=== PATIENT | male | born 1985 | race Hispanic/Latino ===

== ENCOUNTER 2024-09-18 16:45 | Emergency (ER) | payer SELFPAY ==
[2024-09-18] MEDS ORDERED: NA CHLORIDE 0.9% 1,000 ML ONE (19:04)
[2024-09-18 20:35] LABS: Absolute Basophils 0.1 K/uL (0-0.5); Absolute Eosinophils 0.3 K/uL (0-0.5); Absolute Lymphocytes (CBC) 3.2 K/uL (0.7-4.9); Absolute Monocytes 1.4 K/uL (0.1-1.3); Absolute Neutrophil 6.3 K/uL (1.8-8.0); Basophils % 0.8 % (0-1.3); Eosinophils % 2.9 % (0-4.4); Hematocrit 48.7 % (39.6-49.0); Hemoglobin 16.9 g/dL (13.6-17.9); Lymphocytes % 28.2 % (15.3-44.8); MCH 29.3 pg (27.0-35.0); MCHC 34.7 g/dL (32.0-36.0); MCV 84.4 fL (80-100); MPV 7.3 fL (7.6-11.3); Monocytes % 12.1 % (3.3-12.3); Nucleated Red Blood Cells % 0.1 % (0-0); Platelets 381 thou/uL (152-406); RBC Red Blood Cell Count 5.77 M/uL (4.33-5.43); Red Cell Distribution Width 13.5 % (12.1-15.2)
[2024-09-18 20:49] LABS: Albumin 3.6 g/dL (3.4-5.0); Albumin/Globulin Ratio 0.8 (1.1-1.8); Anion Gap 11.2 mEq/L (5.0-15.0); Bilirubin Total 0.8 mg/dL (0.2-1.0); Globulin 4.7 g/dL (2.3-3.5); Potassium 3.2 mEq/L (3.5-5.1); Protein, Total 8.3 g/dL (6.4-8.2)
--- NOTE | 2024-09-18 21:34 | RAD REPORT ---
EXAMINATION: Abdomen Pelvis W Contrast CLINICAL INDICATION: Male, 39 years old.ABD PAIN TECHNIQUE: CT abdomen and pelvis was performed, after the administration of IV contrast, [facility]. Axial, sagittal and coronal reconstructions were obtained. One or more of the following dose reduction techniques were used: Automated exposure control, adjustment of the mA and/o r kV according to patient size, and/or iterative reconstruction. Unless otherwise specified, incidental findings do not require dedicated imaging follow-up. [id number]. COMPARISON: No prior exam. FINDINGS: LOWER CHEST: No acute process identified.No significant pericardial effusion. UPPER GI: No significant abnormality. LIVER: Hepatomegaly with steatosis GALLBLADDER/BILE DUCTS: No biliary ductal dilatation.? PANCREAS: No mass, ductal dilation, or amadna-pancreatic fluid. SPLEEN: Unremarkable. ADRENALS: No adrenal masses. KIDNEYS AND URETERS: No hydronephrosis.No suspicious renal mass.Nonobstructing renal calculi.No urete ral calculi. ABDOMINAL AORTA AND OTHER VESSELS: Normal caliber aorta and IVC. PERITONEUM: No abnormal free fluid. No free air. LYMPH NODES: Enlarged ileocolic mesenteric lymph nodes which are likely reactive. ABDOMINAL WALL: Unremarkable SMALL BOWEL/COLON: Mild diffuse colonic wall thickening.Normal appendix. Mild diverticulosis without diverticulitis. URINARY BLADDER: Underdistended but grossly unremarkable. REPRODUCTIVE ORGANS: No pathologic process. MUSCULOSKELETAL: No acute or suspicious osseous abnormality. ADDITIONAL FINDINGS: None. IMPRESSION: Mild diffuse colonic wall thickening suspicious for colitis. Normal appendix. Hepatomegaly with steatosis.
--- NOTE | 2024-09-18 21:53 | EDPHYS ---
Physician Documentation [facility] Name: Gabo Jeronimo Age: 39 yrs Sex: Male : 1985 Arrival Date: 09/18/2024 Time: 16:45 Bed 15 Private MD: ED Physician Heber Colvin HPI: 09/18 17:49 This 39 yrs old Male presents to ER via Ambulatory with complaints of sb4 Abdominal Pain, Diarrhea. 17:49 The patient presents with abdominal pain in the upper abdomen. Onset: The sb4 symptoms/episode began/occurred 1 week(s) ago. The symptoms do not radiate. Associated signs and symptoms: Pertinent positives: diarrhea, fever. The symptoms are described as sharp. Modifying factors: The symptoms are alleviated by nothing, the symptoms are aggravated by food. The patient has not experienced similar symptoms in the past. The patient has not recently seen a physician. Historical: - Allergies: 17:48 No Known Allergies; me1 - PMHx: 17:48 sepsis; me1 - PSHx: 17:48 None; me1 - Immunization history:: Adult Immunizations up to date. - Infectious Disease History:: Denies. - Social history:: Smoking status: Reported history of juuling and/or vaping. ROS: 17:49 Cardiovascular: Negative for chest pain, palpitations, and edema, sb4 17:49 Constitutional: Positive for fever, 17:49 Abdomen/GI: Positive for abdominal pain, diarrhea, abdominal cramps, 17:49 All other systems are negative, Exam: 17:49 Head/Face: Normocephalic, atraumatic. Eyes: Extra-ocular motions intact. Periorbital sb4 areas with no swelling, redness, or edema. ENT: Mucous membranes moist. Cardiovascular: Regular rate and rhythm with a normal S1 and S2. Respiratory: No increased work of breathing, no retractions or nasal flaring. Abdomen/GI: Soft, non-tender, no distension. Skin: Warm, dry with normal turgor. Normal color with no rashes, no lesions, and no evidence of cellulitis. 17:49 Constitutional: The patient appears in no acute distress, alert, awake, obese, Vital Signs: 17:42 BP 133 / 90; Pulse 104; Resp 18; Temp 98.3; Pulse Ox 100% ; Weight 149.69 kg; Height 5 me1 ft. 8 in. ; Pain 7/10; 20:30 BP 110 / 74; Pulse 80; Resp 17; Pain 0/10; rg5 21:30 BP 113 / 77; Pulse 81; Resp 18; Pain 0/10; rg5 17:42 Body Mass Index 50.18 (149.69 kg, 172.72 cm) me1 17:42 Pain Scale: Adult me1 20:30 Pain Scale: Adult rg5 21:30 Pain Scale: Adult rg5 MDM: 17:06 Medical Screening Exam initiated sb4 17:50 Differential diagnosis: colitis, gastroenteritis, crohns. sb4 21:52 Data reviewed: vital signs, nurses notes, lab test result(s), radiologic studies, and sb4 as a result, I will discharge patient. Counseling: I had a detailed discussion with the patient and/or guardian regarding the historical points, exam findings, and any diagnostic results supporting the discharge/admit diagnosis, lab results, radiology results, the need for outpatient follow up, for definitive care, to return to the emergency department if symptoms worsen or persist or if there are any questions or concerns that arise at home. 09/18 17:48 Order name: CBC with Diff; Complete Time: 20:40 sb4 09/18 17:48 Order name: CMP; Complete Time: 20:54 sb4 09/18 17:48 Order name: Lipase; Complete Time: 20:54 sb4 09/18 17:48 Order name: Fecal Leukocyte Stain sb4 09/18 17:48 Order name: Ova And Parasites sb4 09/18 17:48 Order name: Rotavirus Antigen sb4 09/18 17:48 Order name: Stool Culture sb4 09/18 17:48 Order name: CT Abd/Pelvis - IV Contrast Only; Complete Time: 21:42 sb4 09/18 17:48 Order name: IV Saline Lock; Complete Time: 20:38 sb4 09/18 17:48 Order name: Labs collected and sent; Complete Time: 20:39 sb4 Administered Medications: 20:00 Drug: NS 0.9% IV 1000 ml IV at 1 bolus Per protocol; to be given as a bolus over 60 rg5 minutes Route: IV; Rate: 1 bolus; Site: right forearm; 21:10 Follow up: IV Status: Completed infusion; IV Intake: 1000ml rg5 21:50 Drug: Potassium PO Effervescent Tablet 50 mEq PO once; dissolve in 4 ounces of water or rg5 juice Route: PO; 22:12 Follow up: Response: No adverse reaction rg5 21:50 Drug: metroNIDAZOLE PO 500 mg PO once Route: PO; rg5 22:12 Follow up: Response: No adverse reaction rg5 21:51 Not Given (Physician Discretion): ns 0.9% 1000 ml IV at 1 bolus Per protocol; to be sb4 given as a bolus over 60 minutes 21:52 Drug: Ciprofloxacin PO 500 mg PO once Route: PO; rg5 22:12 Follow up: Response: No adverse reaction rg5 Disposition Summary: 09/18/24 21:52 Discharge Ordered Notes: Location: Home sb4 Problem: new sb4 Symptoms: have improved sb4 Condition: Stable sb4 Diagnosis - Left sided colitis sb4 Followup: sb4 - With: Private Physician - When: 1 week - Reason: Recheck today's complaints, Re-evaluation by your physician Discharge Instructions: - Discharge Summary Sheet sb4 - Colitis sb4 Forms: - Antibiotic Education sb4 - Patient Portal Instructions sb4 - Leadership Thank You Letter sb4 Prescriptions: - Flagyl 500 mg Oral Tablet - take 1 tablet ORAL route every 12 hours for 7 days; 14 tablet; Refills: 0, sb4 Product Selection Permitted - Cipro 500 mg Oral Tablet - take 1 tablet ORAL route every 12 hours for 7 days; 14 tablet; Refills: 0, sb4 Product Selection Permitted Addendum: 09/20/2024 12:36 Co-signature as Attending Physician, Heber Colvin MD I agree with the assessment and c montejo plan of care. Signatures: Dispatcher [employer] Heber Patino MD MD cha Brown, Sophia, PA-C PAGabrielC sb4 Yennifer Horton, RN RN me1 Gutierrez Mayfield, RN RN rg5
--- NOTE | 2024-09-18 21:53 | ER ---
Nurse's Notes [facility] Name: Gabo Jeronimo Age: 39 yrs Sex: Male : 1985 Arrival Date: 09/18/2024 Time: 16:45 Bed 15 Private MD: Diagnosis: Left sided colitis Presentation: 09/18 17:42 Chief complaint: Patient states: he has had n/v/d x 5 days with abdominal pain. me1 Abdominal pain to RUQ and LUQ, unable to keep anything down. intermittent fever. Has seen some blood in his stool. Coronavirus screen: Vaccine status: Patient reports receiving the 2nd dose of the covid vaccine. Ebola Screen: No symptoms or risks identified at this time. Initial Sepsis Screen: Does the patient meet any 2 criteria? HR > 90 bpm. Does the patient have a suspected source of infection? No. Patient's initial sepsis screen is negative. Risk Assessment: Do you want to hurt yourself or someone else? Patient reports no desire to harm self or others. Onset of symptoms was September 13, 2024. 17:42 Method Of [place] [facility] [place] Acuity: DARIN 3 me1 Historical: - Allergies: 17:48 No Known Allergies; me1 - PMHx: 17:48 sepsis; me1 - PSHx: 17:48 None; me1 - Immunization history:: Adult Immunizations up to date. - Infectious Disease History:: Denies. - Social history:: Smoking status: Reported history of juuling and/or vaping. Screenin:00 [facility] ED Fall Risk Assessment (Adult) History of falling in the last 3 months, rg5 including since admission No falls in past 3 months (0 pts) Confusion or Disorientation No (0 pts) Intoxicated or Sedated No (0 pts) Impaired Gait No (0 pts) Mobility Assist Device Used No (0 pt) Altered Elimination No (0 pt) Score/Fall Risk Level 0 - 2 = Low Risk Oriented to surroundings, Maintained a safe environment, Hourly rounding (assess needs \T\ fall precautionary measures) done. Abuse screen: Denies threats or abuse. Nutritional screening: No deficits noted. Tuberculosis screening: No symptoms or risk factors identified. Assessment: 20:00 General: Appears in no apparent distress. comfortable, Behavior is calm, cooperative, rg5 appropriate for age. Pain: Complains of pain in abdomen. Neuro: Level of Consciousness is awake, alert, obeys commands, Oriented to person, place, time, situation. 20:00 Cardiovascular: Patient's skin is warm and dry. Respiratory: Airway is patent Trachea rg5 midline Respiratory effort is even, unlabored, Respiratory pattern is. GI: Abdomen is round non-distended, Bowel sounds present in left lower quadrant Abd is soft and non tender Reports cramping, diarrhea. : No signs and/or symptoms were reported regarding the genitourinary system. EENT: No signs and/or symptoms were reported regarding the EENT system. Derm: Skin is intact, Skin is dry, Skin is normal, Skin temperature is warm. Musculoskeletal: Circulation, motion, and sensation intact. Range of motion: intact in all extremities. Vital Signs: 17:42 BP 133 / 90; Pulse 104; Resp 18; Temp 98.3; Pulse Ox 100% ; Weight 149.69 kg; Height 5 me1 ft. 8 in. ; Pain 7/10; 20:30 BP 110 / 74; Pulse 80; Resp 17; Pain 0/10; rg5 21:30 BP 113 / 77; Pulse 81; Resp 18; Pain 0/10; rg5 17:42 Body Mass Index 50.18 (149.69 kg, 172.72 cm) me1 17:42 Pain Scale: Adult me1 20:30 Pain Scale: Adult rg5 21:30 Pain Scale: Adult rg5 ED Course: 16:48 Patient arrived in ED. ts1 17:00 [facility] Pollard [facility] sb4 17:00 Heber Colvin MD is Attending Physician. sb4 17:48 Triage completed. me1 17:48 Arm band placed on Patient placed in waiting room. me1 19:04 Gutierrez Mayfield, LÁZARO is Primary Nurse. rg5 20:00 Patient has correct armband on for positive identification. Door closed. Noise rg5 minimized. 20:00 No provider procedures requiring assistance completed. Inserted saline lock: 20 gauge rg5 in right forearm, using aseptic technique. Blood collected. Flushed with 10 mL NS. 20:06 Radiology exam delayed due to lab results not completed at this time. IV insertion sm9 attempt and/or patient not having appropriate IV at this time. 21:20 CT Abd/Pelvis - IV Contrast Only In Process Unspecified. EDMS 22:00 Provided Education on: post er care. rg5 22:00 IV discontinued, bleeding controlled, No redness/swelling at site. Pressure dressing rg5 applied. Administered Medications: 20:00 Drug: NS 0.9% IV 1000 ml IV at 1 bolus Per protocol; to be given as a bolus over 60 rg5 minutes Route: IV; Rate: 1 bolus; Site: right forearm; 21:10 Follow up: IV Status: Completed infusion; IV Intake: 1000ml rg5 21:50 Drug: Potassium PO Effervescent Tablet 50 mEq PO once; dissolve in 4 ounces of water or rg5 juice Route: PO; 22:12 Follow up: Response: No adverse reaction rg5 21:50 Drug: metroNIDAZOLE PO 500 mg PO once Route: PO; rg5 22:12 Follow up: Response: No adverse reaction rg5 21:51 Not Given (Physician Discretion): ns 0.9% 1000 ml IV at 1 bolus Per protocol; to be sb4 given as a bolus over 60 minutes 21:52 Drug: Ciprofloxacin PO 500 mg PO once Route: PO; rg5 22:12 Follow up: Response: No adverse reaction rg5 Medication: 20:00 VIS not applicable for this client. rg5 Intake: 21:10 IV: 1000ml; Total: 1000ml. rg5 Outcome: 21:52 Discharge ordered by . sb4 22:00 Discharged to home ambulatory, rg5 22:00 Condition: stable rg5 22:00 Instructed on discharge instructions, follow up and referral plans. Demonstrated understanding of instructions, follow-up care, Prescriptions given X 2, 22:22 Patient left the ED. rg5 Signatures: Dispatcher [employer] Anusha Moncada PA-C PALinette sb4 Armida Lambert PAS PAS ts1 Yennifer Horton, RN RN nv1 Milagro Love [facility] Gutierrez Mayfield, RN RN rg5
[2024-09-18] MEDS ORDERED: metroNIDAZOLE 500 MG TABLET ONE (22:01)
[2024-09-18] MEDS ORDERED: POTASSIUM 25 MEQ EFFERV TAB ONE (22:02)
[2024-09-18] MEDS ORDERED: CIPROFLOXACIN HCL 500 MG TAB ONE (22:02)
[2024-09-18 22:58] VITALS: BP 133/90; TEMP 98.3; O2SAT 100
== END 2024-09-18 22:22 | disposition home or self-care (01) ==
LOC: ER 16:45
DX: K51.50 Left sided colitis without complications (principal)
CPT/HCPCS: 36415; 74177; 80053; 83690; 85025; 96360; 99284; J7030; Q9967